=== PATIENT | female | born 1985 | race Caucasian/White ===

== ENCOUNTER 2025-02-22 09:40 | Outpatient (CLI) | payer MEDICAID ==
[~2025-02-22 09:40] MED LIST: HYDR-569 PO; MOT200T PO; NO HOME MEDS
--- NOTE | 2025-02-22 11:45 | RADIOLOGY REPORT ---
Technique: Real-time ultrasound images through the pelvis using a transabdominal transducer. Indication: PELVIC PAIN Comparison: None Findings: The uterus measures 8.7 cm. The endometrial stripe measures 7 mm. There are no focal masses. There is no abnormal flow in the endometrium. Echogenic foci in the myometrium could represent calcification. Right ovary measures 2.7 x 1.3 x 1.4 cm. Normal flow on color doppler images. No focal masses are identified. Left ovary measures 2.8 x 1.8 x 1.7 cm. Normal flow on color doppler images. No focal masses are identified. There is no significant free fluid in the pelvis. Impression: No sonographic evidence for ovarian torsion.
== END 2025-02-22 23:59 | disposition home or self-care (01) ==
LOC: RAD 09:40
PROVIDERS: ATTEND Nurse Practitioner Family
DX: R10.20 Pelvic and perineal pain unspecified side (principal)
CPT/HCPCS: 76856; 93976